=== PATIENT | female | born 1990 | race Caucasian/White ===

== ENCOUNTER 2021-04-04 14:57 | Emergency (ER) | payer OTHER ==
[2021-04-04 15:20] VITALS: BP 108/71; PULSE 87; TEMP 98.7; BMI 22.8
== END 2021-04-04 17:44 | disposition home or self-care (01) ==
LOC: FER 14:57
DX: S76.011A Strain of muscle, fascia and tendon of right hip, initial encounter (principal); S86.912A Strain of unspecified muscle(s) and tendon(s) at lower leg level, left leg, initial encounter; X50.3XXA Overexertion from repetitive movements, initial encounter; Y93.02 Activity, running
CPT/HCPCS: 73523-TC-FY; 81025; 93971-TC; 99285-25

== ENCOUNTER 2021-08-31 20:51 | Emergency (ER) | payer OTHER ==
[2021-08-31 21:11] VITALS: BP 104/76; PULSE 80; TEMP 98.7; BMI 22.8
== END 2021-08-31 21:07 | disposition home or self-care (01) ==
LOC: FER 20:51
DX: S60.412A Abrasion of right middle finger, initial encounter (principal); Y99.8 Other external cause status
CPT/HCPCS: 99282-25

== ENCOUNTER 2022-04-06 14:50 | Emergency (ER) | payer OTHER ==
[2022-04-06 15:01] VITALS: BP 105/76; PULSE 71; RESP 16; TEMP 99; BMI 23.1
== END 2022-04-06 16:39 | disposition home or self-care (01) ==
LOC: FER 14:50
DX: S99.912A Unspecified injury of left ankle, initial encounter (principal); W50.0XXA Accidental hit or strike by another person, initial encounter; Y35.811A Legal intervention involving manhandling, law enforcement official injured, initial encounter
CPT/HCPCS: 73610-TC-LT-FY; 73630-TC-LT; 99283-25

== ENCOUNTER 2025-02-13 14:43 | Emergency (ER) | payer OTHER ==
[2025-02-13 15:01] VITALS: BP 105/72; PULSE 74; RESP 18; TEMP 98.6; BMI 21.4
[2025-02-13] MEDS ORDERED: IBUPROFEN 400 MG TABLET (FP) PO ONE (15:19)
[2025-02-13] MEDS: IBUPROFEN 400 MG TABLET (FP) PO ONE (15:20)
== END 2025-02-13 15:37 | disposition home or self-care (01) ==
LOC: FER 14:43
DX: M79.601 Pain in right arm (principal); Y35.811A Legal intervention involving manhandling, law enforcement official injured, initial encounter
CPT/HCPCS: 99283-25